=== PATIENT | male | born 1985 | race Caucasian/White ===

== ENCOUNTER 2022-01-24 11:30 | Outpatient (CLI) | payer OTHER, MEDICAID ==
[~2022-01-24 11:30] MED LIST: BUS10T OR; CLON0.3T OR; ESOM40CA39 OR; FLUV100C OR; HYDR50TA69 OR; LABE100T4 OR; LEVE500T32 OR; NIFE1TAB31 OR; POTA-220 OR; VALS160T4 OR; zyrtec
[2022-01-24 11:49] LABS: Urine WBC None Seen /hpf (0 - 3)
[2022-01-24 11:57] LABS: Urine Bacteria NONE SEEN /hpf (None Seen); Urine Blood Negative /uL (Negative); Urine Specific Gravity 1.014 (1.001-1.035)
[2022-01-24 12:10] LABS: Basophils # (auto) 0 10 ^3/uL (0-0.2); Basophils % (auto) 0.5 % (0.0-2.0); Eosinophils # (auto) 0.1 10 ^3/uL (0-0.8); Eosinophils % (auto) 2.7 % (0.0-7.0); Hemoglobin 16.4 g/dL (13.5-17.5); INR 0.98 (0.9-1.15); Lymphocytes # (auto) 1.1 10 ^3/uL (0.4-5.4); Lymphocytes % (auto) 22.4 % (10.0-50.0); Mean Corpuscular Hemoglobin 30.1 pg (28.0-32.0); Monocytes # (auto) 0.7 10 ^3/uL (0-1.3); Monocytes % (auto) 13.9 % (0.0-12.0); Neutrophils # (auto) 3.1 10 ^3/uL (1.6-8.6); Neutrophils % (auto) 60.5 % (37.0-80.0); Nucleated Red Blood Cells % 0.1 %; Partial Thromboplastin Time 26.9 sec (23.6-33.0); Red Blood Cells 5.46 10^6/uL (4.5-5.90); White Blood Cell 5.1 10^3/uL (4.4-10.8)
[2022-01-24 12:44] LABS: Potassium 3.4 mmol/L (3.5-5.1)
[2022-01-24 12:49] LABS: Albumin 3.9 g/dL (3.4-5.0); BUN/Creatinine Ratio 13.2
[2022-01-24 12:51] LABS: Bilirubin, Total 0.6 mg/dL (0.2-1.0); Total Protein 7.1 g/dL (6.4-8.2)
[2022-01-25] MEDS ORDERED: LUTE15CA PO (16:03)
[2022-01-25] MEDS ORDERED: FLUT1SPR5 (16:03)
[2022-01-25] MEDS ORDERED: INSLISPI SC (16:03)
[2022-01-25] MEDS ORDERED: OMEP20TA PO (16:03)
[2022-01-25] MEDS ORDERED: INSLANTI SC (16:03)
[2022-01-25] MEDS ORDERED: PRE5T PO (16:03)
[2022-01-25] MEDS ORDERED: BUPR75TA11 PO (16:03)
== END 2022-01-24 11:40 | disposition home or self-care (01) ==
LOC: LAB 11:30 → EDSTATUS 01-27 07:00
PROVIDERS: ATTEND Urology
DX: Z30.09 Encounter for other general counseling and advice on contraception (principal); F41.9 Anxiety disorder, unspecified; F31.9 Bipolar disorder, unspecified; Z53.8 Procedure and treatment not carried out for other reasons; Z82.49 Family history of ischemic heart disease and other diseases of the circulatory system; Z83.3 Family history of diabetes mellitus; Z83.42 Family history of familial hypercholesterolemia; Z84.1 Family history of disorders of kidney and ureter; Z81.8 Family history of other mental and behavioral disorders; Z81.1 Family history of alcohol abuse and dependence
CPT/HCPCS: 36415; 80053; 81001; 85025; 85610; 85730; U0003